=== PATIENT | female | born 1985 | race Caucasian/White ===

== ENCOUNTER 2018-06-23 08:00 | Inpatient (IN) ==
[2018-06-23] MEDS ORDERED: Metoclopramide 10 MG/2 ML VIAL IVP PRN (08:40)
[2018-06-23] MEDS ORDERED: *HR* Nalbuphine 10 MG/ML AMPUL IVP PRN (08:40)
[2018-06-23] MEDS ORDERED: Naloxone 0.4 MG/ML INJ IVP PRN (08:40)
[2018-06-23] MEDS ORDERED: Famotidine 20 MG/2 ML VIAL IVP PRN (08:40)
[2018-06-23] MEDS ORDERED: Ringers Solution, Lactated 1,000 ML IVC SCH (08:45)
[2018-06-23] MEDS ORDERED: EPHEDrine 50 MG/ML VIAL IVP PRN (08:57)
[2018-06-23] MEDS ORDERED: Penicillin G Potassium 5,000,000 UNIT in 0.9 % Sodium Chloride Mini Bag 100 ML IVPB ONE (09:00)
[2018-06-23] MEDS ORDERED: Epidural Premix (fent/bupiv) 110 ML EP SCH (09:00)
[2018-06-23] MEDS: Ondansetron 4 MG/2 ML VIAL IVP PRN ×2 (09:19→15:48)
[2018-06-23 09:27] LABS: Basophils % 0.3 %; Eosinophils # 0.2 K/mcL (0.0-0.6); Eosinophils % 1.8 %; Hematocrit 34.3 % (35.3-44.9); Immature Granulocytes % 1.5 % (0-4); Lymphocytes # 1.8 K/mcL (0.6-4.6); Lymphocytes % 19.3 %; Mean Corpuscular Volume 91.5 fL (83.0-100.0); Mean Platelet Volume 10.6 fL (9.4-12.4); Monocytes # 0.9 K/mcL (0.0-1.3); Monocytes % 9.1 %; Neutrophils # 6.5 K/mcL (1.6-8.9); Platelet Count 200 K/mcL (140-400); Red Blood Count 3.75 M/mcL (3.82-4.97); Red Cell Distribution Width 13.1 % (11.5-14.5)
[2018-06-23] MEDS ORDERED: Oxytocin 20 units/ LR 1000 mL 20 UNIT/1,000 ML BAG IVC SCH ×2 (09:30→21:30)
[2018-06-23 09:42] LABS: Amphetamine Screen,Urine Negative ng/mL (Cutoff=1000); Barbiturate Screen,Urine Negative ng/mL (Cutoff=200); Benzodiazepines Screen,Urine Negative ng/mL (Cutoff=200); Cannabinoid Screen,Urine Negative ng/mL (Cutoff = 50); Cocaine Screen,Urine Negative ng/mL (Cutoff= 300); Opiate Screen,Urine Negative ng/mL (Cutoff=300); Phencyclidine Screen,Urine Negative ng/mL (Cutoff=25)
--- NOTE | 2018-06-23 09:42 | Anesthesia Evaluation PreOp ---
Date of Encounter: 06/23/18 Time of Encounter: 09:39 - Past History Planned Operation: vaginal del, term, induction Cardiac History: Denies any Significant Hx Pulmonary History: Denies Any Significant HX [employer] History: Other (depression, anemia) Other Medical History: Denies Any Significant HX Anesthesia History: No Prior Anesthetic Complications, Past Anesthesia Alcohol Use: none Drug use: none Medications and Allergies Ferrous Sulfate 324 mg PO DAILY 06/06/18 [History] Magnesium 1 tab PO DAILY 06/06/18 [History] Melatonin 5 mg PO HS 06/06/18 [History] Vitamins 1 tab PO DAILY 06/06/18 [History] Prozac 20 mg PO DAILY 06/06/18 [History] 3 Allergy/AdvReac Type Severity Reaction Status Date / Time acetaminophen [From Percocet] AdvReac Vomiting Verified 06/06/18 15:18 hydrocodone [From Vicodin] AdvReac Vomiting Verified 06/06/18 15:18 Oxycodone [From Percocet] AdvReac Vomiting Verified 06/06/18 15:18 Anesthesia Results - Labs 06/23/18 08:52 Anesthesia Exam - HEENT Pupil (Motor): Pupils equal Mallampati: II Teeth: Normal Oral Opening: Greater than 3 - [employer] LOC: Oriented [employer] Motor: Normal RUE, Normal LUE, Normal RLE, Normal LLE, Normal Face [employer] Sensory: Normal: RUE, LUE, RLE, LLE, Face - Cardiac Rhythm: Regular Murmur: None - Pulmonary Breath Sounds: bilateral Clear Respiratory Effort: Symmetrical Anesthesia Assess/Plan ASA Score: 2 Modified [place] Scale for Level of Consciousness: Cooperative, oriented, and tranquil Anesthetic Plan: General, Regional Monitoring Plan: Standard Monitors Recovery Plan: PACU
[2018-06-23] MEDS ORDERED: Lidocaine -MPF 2% 5 ML VIAL ONE (09:50)
--- NOTE | 2018-06-23 10:03 | OB/GYN History & Physical ---
Date of Encounter: 06/23/18 Time of Encounter: 10:01 Assessment and Plan (1) Encounter for induction of labor Current visit: Yes Status: Acute (2) 39 weeks gestation of Current visit: Yes Status: Acute History of Present Illness Chief complaint: Induction of Labor HPI: Ms. Cline is a 32 year old female who presents at 39 weeks 2 days for induction of labor. Past Medical Hx of Anxiety/Depression managed with Prozac, and Past Surgical Hx of umbilical hernia s/p mesh repair. Reports occasional contractions prior to arrival. + Movement. Denies vaginal bleeding or leakage of fluid. Denies fever, headache, blurry vision, flank pain , abdominal pain, nausea, vomiting, diarrhea. Labs: GBS negative, Varicella negative, Rubella NON-IMMUNE; all other labs reviewed and negative Past Med Surg Social Fam HX - Past Medical History Medical history: no medical history Psychiatric history: anxiety, depression - Past Surgical History Surgical History: other Additional surgical history: umbilical hernia repair - Social History Smoking Status: Never smoker Smokeless Tobacco Status: No Alcohol use: none Drug use: none - Family History Father History Unknown: Yes Obstetrical History - Pregnancies : 4 Para: 2 Term: 1 : 1 Ab's: 1 Livin Medications and Allergies Ferrous Sulfate 324 mg PO DAILY 06/06/18 [History] Magnesium 1 tab PO DAILY 06/06/18 [History] Melatonin 5 mg PO HS 06/06/18 [History] Vitamins 1 tab PO DAILY 06/06/18 [History] Prozac 20 mg PO DAILY 06/06/18 [History] 3 Allergy/AdvReac Type Severity Reaction Status Date / Time acetaminophen [From Percocet] AdvReac Vomiting Verified 06/06/18 15:18 hydrocodone [From Vicodin] AdvReac Vomiting Verified 06/06/18 15:18 Oxycodone [From Percocet] AdvReac Vomiting Verified 06/06/18 15:18 Review of System OB All systems PM: reviewed and no additional remarkable complaints except as stated - Constitutional Constitutional ROS IM: no fatigue, no fever(s) - Cardiovascular Cardiovascular: no chest pain, no dyspnea, no edema - Respiratory Respiratory: no cough, no dyspnea - Gastrointestinal Gastrointestinal: no abdominal pain, no nausea, no vomiting Exam - Constitutional Constitutional: well developed, well nourished, no acute distress - HEENT HEENT: EOMI, PERRL - Neck Neck exam: full ROM - Lungs Respiratory exam: CTAB - Cardiovascular Cardiovascular exam: RRR, +S1, +S2 - Abdomen Abdomen: Present: bowel sounds normal, gravid, non tender - Extremities Extremities exam: full ROM, normal capillary refill, normal inspection, warm, radial pulses palpable and symmetrical Deep Tendon Reflex Grade: 3+ Normal But Brisk (3+ patellar reflex) - Cervix Dilation: 3 (per RN) Effacement: 60 Station: -1 Results Result Diagrams: 06/23/18 08:52 Abnormal lab results RBC 3.75 M/mcL (3.82-4.97) L 06/23/18 08:52 Hct 34.3 % (35.3-44.9) L 06/23/18 08:52 All other labs normal. - Attending Attestation I personally examined this patient. I reviewed the resident's note and agree with its contents.
[2018-06-23] MEDS ORDERED: Epidural Premix (fent/bupiv) 110 ML EP ONE (10:39)
[2018-06-23] MEDS: Penicillin G Potassium 2,500,000 UNIT in 0.9 % Sodium Chloride 100 ML IVPB SCH ×2 (12:54→17:02)
--- NOTE | 2018-06-23 15:11 | Anesthesia Procedures ---
Date of Encounter: 06/23/18 Time of Encounter: 14:41 Procedures: Anesthesia - Epidural/Spinal Patient ID/Chart reviewed: Yes Patient examined: Yes OB Eval: Gestational age: term OB Eval: : 4 OB Eval: Hx Para: 2 OB Eval: Contractions: Non-stressed pattern Consent Obtained: Yes Supplemental Oxygen: None/Room Air Site Prep: Aseptic Technique, Sterile prep and drape, 0.5% Chlorhexidine/Alcohol Patient position: upright Local Anesthetic: Lidocaine 1% Amount of Local Anesthetic used: 2 Touhy Needle Gauge: 18 Touhy Needle Depth (cm): 6 Catheter Depth at Skin (cm): 10 Test Dose (1.5% Lido + Epi): Volume given (mls): 3 Test Dose Result: Negative Loading Dose: Other: 10ml from solution Loading Dose Administered: Thru Catheter Infusion Med: 0.125% Bupivacaine w/ 2 mcg/ml Fentanyl Infusion Rate (mls/hr): [address]: Tegaderm, Tape Interspace Used: L3-L4 Loss of Resistance (JUAN JOSE): Yes (saline) Blood: No CSF: No Paresthesia: No Procedure: vss though out procedure, FHR stable per RN's
[2018-06-23] MEDS ORDERED: *HR* Oxytocin 10 UNIT/ML VIAL IM ONE (21:10)
--- NOTE | 2018-06-23 21:29 | OB/GYN Procedure Note ---
Delivery - Delivery Date: 06/23/18 Provider: Aníbal Cox Intrapartum events: none Delivery induction: oxytocin Delivery augmentation: rupture of membranes Delivery monitor: external FHT, external uterine Anesthesia: none, epidural Quantitated Blood Loss: 250 - Infant (s) A Infant Delivery Date: 06/23/18 Infant Delivery Time: 21:06 Presentation: vertex Position: GREGORIO Route of delivery: Gender: Male Viability: Viable Pounds: 9 Ounces: 5 Weight Gram: 4230 kg at 1 minute: 8 at 5 mins: 8 Shoulder Dystocia: not encountered Specimens collected: cord blood Placenta: spontaneous Cord: 3 umbilical vessels - Repair Episiotomy: none Laceration Description: None - Complications Delivery complications: none - Disposition Mom disposition: stable in LDR disposition: stable in LDR - Comments Comments: Patient progressed to complete and on the perineum. She delivered a live male weighing 9 lbs. 5 oz. with Apgars of 8 and 9. Position was right occiput anterior. Placenta delivered spontaneously intact with 3 vessels. No lacerations or episiotomy were encountered. Estimated blood loss was 250 mL. Patient and and family bonding in labor and delivery.
[2018-06-23] MEDS ORDERED: Acetaminophen 325 MG TABLET PO PRN (21:30)
[2018-06-23] MEDS ORDERED: Lanolin 7 G OINT...G. TP PRN (21:30)
[2018-06-23] MEDS ORDERED: Benzocaine/Menthol 56 GM AEROSOL SPRAY TP PRN (21:30)
[2018-06-23] MEDS ORDERED: Measles/Mumps/Rubella Vacc 0.5 ML VIAL SQ PRN (21:30)
[2018-06-23] MEDS ORDERED: Sennosides 8.6 MG TABLET PO PRN (21:30)
--- NOTE | 2018-06-23 21:52 | OB Labor Progress Note ---
Date of Encounter: 06/23/18 Time of Encounter: 21:49
[2018-06-24 05:46] LABS: Basophils % 0.2 %; Eosinophils % 0.3 %; Hematocrit 34.4 % (35.3-44.9); Lymphocytes # 1.3 K/mcL (0.6-4.6); Lymphocytes % 10.7 %; Mean Corpuscular HGB Conc 34.9 g/dL (31.6-35.5); Mean Corpuscular Hemoglobin 32.2 pg (28.0-33.3); Mean Corpuscular Volume 92.2 fL (83.0-100.0); Mean Platelet Volume 10.2 fL (9.4-12.4); Monocytes # 0.8 K/mcL (0.0-1.3); Monocytes % 6.4 %; Neutrophils # 10.2 K/mcL (1.6-8.9); Platelet Count 192 K/mcL (140-400); Red Blood Count 3.73 M/mcL (3.82-4.97); Red Cell Distribution Width 13.2 % (11.5-14.5); Segmented Neutrophils % 81.4 %
[2018-06-24] MEDS: Ibuprofen 600 MG TABLET PO PRN ×3 (07:36→21:29)
--- NOTE | 2018-06-24 08:46 | OB/GYN Progress Note ---
Date of Encounter: 06/24/18 Time of Encounter: 08:44 - Assessment and Plan (1) 39 weeks gestation of Current Visit: Yes Status: Acute Discussed discharge options with the patient. Patient stated that she would like to be discharged home at 24 hours s/p delivery. Patient denies need for motrin/colace for home care. Subjective - Subjective Principal diagnosis: S/P Vaginal delivery 39 weeks 2 days Interval history: ROS negative except for admission of diffuse cramping experienced, worse in abdomen, specifically during nursing. Patient encouraged to attempt mechanical symptom relief by laying on stomach, in addition to motrin for home care. well. Lochia light and without clots. Patient considering discharge home this evening vs tomorrow morning. Patient reports: appetite normal, voiding normally, pain well controlled, ambulating normally [place]: doing well Objective - Latest Vital Signs Latest vital signs: Vital Signs Temp Pulse Resp BP Pulse Ox 06/24/18 07:56 97.8 F 98 20 106/72 98 06/24/18 02:14 98.2 F 80 16 130/74 98 06/24/18 01:06 98.0 F 73 16 132/82 99 06/24/18 00:10 98.2 F 69 16 125/78 99 Intake and Output 06/23/18 06/24/18 06/24/18 23:59 07:59 15:59 Intake Total 0 / 0 Output Total 2450 / 2450 Balance -2450 / -2450 Intake: Oral 0 / 0 Output: Urine 2450 / 2450 Other: # Voids 2 Weight 69.763 kg Patient Weight 06/24/18 23:59 Weight 69.763 kg - Exam Lungs: bilateral: normal Chest: Normal S1, Normal S2 Extremities: Present: normal. Absent: edema Abdomen: Present: normal appearance, soft. Absent: rigidity, distention, tenderness, mass Uterus: Present: firm Uterus Position: 2 Fingers Below Umbilicus, Midline - Labs Labs: Laboratory Results - last 24 hr 06/23/18 06/23/18 06/24/18 08:52 08:52 05:23 WBC 9.5 12.5 H RBC 3.75 L 3.73 L Hgb 12.0 12.0 Hct 34.3 L 34.4 L MCV 91.5 92.2 MCH 32.0 32.2 MCHC 35.0 34.9 RDW 13.1 13.2 Plt Count 200 192 MPV 10.6 10.2 Immature Gran % 1.5 1.0 Seg Neutrophils % 68.0 81.4 Lymphocytes % 19.3 10.7 Monocytes % 9.1 6.4 Eosinophils % 1.8 0.3 Basophils % 0.3 0.2 Neutrophils # 6.5 10.2 H Lymphocytes # 1.8 1.3 Monocytes # 0.9 0.8 Eosinophils # 0.2 0.0 Basophils # 0.0 0.0 Urine Opiates Screen Negative Ur Barbiturates Screen Negative Ur Phencyclidine Scrn Negative Ur Amphetamines Screen Negative U Benzodiazepines Scrn Negative Urine Cocaine Screen Negative U Marijuana (THC) Screen Negative Ur Drug Screen Interp See Below
[2018-06-24] MEDS ORDERED: Prenatal Vit/FA 1 EACH TABLET PO SCH (09:00)
[2018-06-24 20:57] VITALS: BP 120/87
--- NOTE | 2018-06-24 21:39 | Discharge Summary ---
Date of Encounter: 06/24/18 Time of Encounter: 21:37 - Discharge Diagnosis (1) 39 weeks gestation of Priority: Primary Status: Acute Comments: Patient continues to do well throughout the day; she is requesting discharge as is 24 hours old. - Discharge Medications Home Medications: Ferrous Sulfate 324 mg PO DAILY 06/06/18 [History] Magnesium 1 tab PO DAILY 06/06/18 [History] Vitamins 1 tab PO DAILY 06/06/18 [History] Prozac 20 mg PO DAILY 06/06/18 [History] Acetaminophen [Tylenol] 650 mg PO Q6HR PRN tablet 06/24/18 [Rx] Benzocaine/Menthol [place] [Dermoplast Bena] 1 appl TP QID PRN aerosol 06/24/18 [Rx] Docusate [Colace] 100 mg PO BID capsule 06/24/18 [Rx] Ibuprofen [Motrin] 600 mg PO Q6HR PRN tablet 06/24/18 [Rx] Lanolin [Lansinoh] 1 appl TP QID PRN oint...g. 06/24/18 [Rx] Allergies/Adverse Reactions: 3 Allergy/AdvReac Type Severity Reaction Status Date / Time acetaminophen [From Percocet] AdvReac Vomiting Verified 06/06/18 15:18 hydrocodone [From Vicodin] AdvReac Vomiting Verified 06/06/18 15:18 Oxycodone [From Percocet] AdvReac Vomiting Verified 06/06/18 15:18 Data Procedures and tests throughout hospitalization: Laboratory Tests 06/23/18 06/23/18 06/24/18 08:52 08:52 05:23 WBC 9.5 12.5 H RBC 3.75 L 3.73 L Hgb 12.0 12.0 Hct 34.3 L 34.4 L MCV 91.5 92.2 MCH 32.0 32.2 MCHC 35.0 34.9 RDW 13.1 13.2 Plt Count 200 192 MPV 10.6 10.2 Immature Gran % 1.5 1.0 Seg Neutrophils % 68.0 81.4 Lymphocytes % 19.3 10.7 Monocytes % 9.1 6.4 Eosinophils % 1.8 0.3 Basophils % 0.3 0.2 Neutrophils # 6.5 10.2 H Lymphocytes # 1.8 1.3 Monocytes # 0.9 0.8 Eosinophils # 0.2 0.0 Basophils # 0.0 0.0 Urine Opiates Screen Negative Ur Barbiturates Screen Negative Ur Phencyclidine Scrn Negative Ur Amphetamines Screen Negative U Benzodiazepines Scrn Negative Urine Cocaine Screen Negative U Marijuana (THC) Screen Negative Ur Drug Screen Interp See Below Labs on day of discharge: Labs from last 24 hours 06/24/18 05:23 WBC 12.5 H RBC 3.73 L Hgb 12.0 Hct 34.4 L MCV 92.2 MCH 32.2 MCHC 34.9 RDW 13.2 Plt Count 192 MPV 10.2 Immature Gran % 1.0 Seg Neutrophils % 81.4 Lymphocytes % 10.7 Monocytes % 6.4 Eosinophils % 0.3 Basophils % 0.2 Neutrophils # 10.2 H Lymphocytes # 1.3 Monocytes # 0.8 Eosinophils # 0.0 Basophils # 0.0 Date of admission: 06/23/18 08:10 Primary care physician: PCP MERNA Consults: 06/23/18 21:30 Consult to [employer] Program[employer] [CONS] Routine Comment: Vaginal delivery, consult needed Discharging clinician: Batool Bernard Anticipated date of discharge: 06/24/18 - Patient Status Disposition: Home, Self-Care Condition: Good Functional capacity at discharge: independent ambulation Overall status at discharge: patient is progressing back to baseline - Discharge Instructions Follow Up With: NONE,PCP [Primary Care Provider] - Aníbal Cox MD [Partnered Physician] - - Diet and Activity Activity: increase activity as tolerated Diet: regular diet Hospital Course Reason for admission: IUP at term Delivery: Episiotomy: none Laceration: none Other procedures: none complications: none Discharge diagnosis: IUP at term delivered [place] baby: male Time Attestation: Total time spent providing and/or coordinating discharge services: Time Spent: Less than 30 minutes Exam - Constitutional Vitals: Temp Pulse Resp BP Pulse Ox 98.0 F 68 14 120/87 97 06/24/18 20:56 06/24/18 20:56 06/24/18 20:56 06/24/18 20:56 06/24/18 20:56 General appearance IM: cooperative, A&O X 3, pleasant - Uterine Tone: Firm Uterus Position: At Umbilicus, Midline
== END 2018-06-24 22:55 | disposition home or self-care (01) | DRG 560 ==
LOC: 1NENULAB 08:10 → 1NENUOBS 06-24 00:14
PROVIDERS: ADMIT Obstetrics & Gynecology; ATTEND Obstetrics & Gynecology